=== PATIENT | male | born 1990 | race African-American/Black ===

== ENCOUNTER 2016-12-26 22:58 | Emergency (ER) | payer MEDICAID, MEDICARE ==
[~2016-12-26] VITALS: Ht 170.2 cm; Wt 71.0 kg
[~2016-12-26 22:58] MED LIST: ALBUTEROL
[2016-12-26] MEDS ORDERED: IPRATROPIUM/ALBUTEROL 0.5-3(2.5)MG/3ML NEB HHN ONE (23:45)
[2016-12-26] MEDS ORDERED: PREDNISONE 20MG TABLET PO ONE (23:45)
[2016-12-26] MEDS ORDERED: KETOROLAC 30MG/ML VIAL IV ONE (23:45)
[2016-12-27] MEDS ORDERED: TETANUS, DIPHTHERIA, PERTUSSIS VAC/PF 0.5ML (>7YR OLD) IM ONE (00:30)
[2016-12-27] MEDS ORDERED: LIDOCAINE HCL/EPINEPHRINE 1%-EPI 1:100,000 20 ML VIAL INFIL ONE (00:30)
[2016-12-27 02:15] VITALS: BP 115/66
== END 2016-12-27 02:15 | disposition home or self-care (01) ==
LOC: ER 22:59
DX: S41.012A Laceration without foreign body of left shoulder, initial encounter (principal); S60.221A Contusion of right hand, initial encounter; J45.909 Unspecified asthma, uncomplicated; F17.210 Nicotine dependence, cigarettes, uncomplicated; X99.1XXA Assault by knife, initial encounter; Y92.89 Other specified places as the place of occurrence of the external cause
CPT/HCPCS: 12001; 73030; 73130; 90471; 90715; 94640; 96372; 99284; A4217; J1885; J3490; J7512; X7700; Z7610; J7620

== ENCOUNTER 2017-01-02 15:19 | Emergency (ER) | payer MEDICAID, MEDICARE ==
[~2017-01-02] VITALS: Ht 170.2 cm; Wt 73.0 kg
[2017-01-02 15:55] VITALS: BP 123/72
== END 2017-01-02 15:57 | disposition left against medical advice (07) ==
LOC: ER 15:20
DX: Z53.21 Procedure and treatment not carried out due to patient leaving prior to being seen by health care provider (principal)

== ENCOUNTER 2017-01-03 08:54 | Emergency (ER) | payer MEDICAID ==
[~2017-01-03] VITALS: Ht 170.2 cm; Wt 98.7 kg
[2017-01-03 09:17] VITALS: BP 125/77
== END 2017-01-03 10:57 | disposition home or self-care (01) ==
LOC: ER 09:31
DX: S41.012D Laceration without foreign body of left shoulder, subsequent encounter (principal); J45.909 Unspecified asthma, uncomplicated; X58.XXXD Exposure to other specified factors, subsequent encounter; Y99.9 Unspecified external cause status; Y92.9 Unspecified place or not applicable
CPT/HCPCS: 99281; Z7610

== ENCOUNTER 2021-06-14 07:00 | Emergency (ER) | payer MEDICAID, MEDICARE ==
[~2021-06-14] VITALS: Ht 170.2 cm; Wt 92.7 kg
[2021-06-14] MEDS ORDERED: SODIUM CHLORIDE 0.9% 1,000 ML IV ONE (07:45)
[2021-06-14] MEDS ORDERED: LORAZEPAM 2MG/ML CPJ IV ONE (07:45)
[2021-06-14] MEDS ORDERED: MECLIZINE 25MG TABLET PO ONE (07:45)
[2021-06-14 07:50] LABS: BASOPHILS % 0.6 % (0.0-2.0); EOSINOPHILS % 2.5 % (0.0-5.0); HEMATOCRIT. 44.2 % (42.0-52.0); LYMPHOCYTES % 37.5 % (20.0-50.0); MEAN CORPUSCULAR HEMOGLOBIN 26.8 pg (28.0-32.0); MEAN CORPUSCULAR VOLUME 79.3 fL (80.0-94.0); MEAN PLATELET VOLUME 8.4 fl (7.4-10.4); MONOCYTES % 7.4 % (2.0-8.0); PLATELET 256 x1000/uL (130-400); RED BLOOD CELL COUNT 5.58 mill/uL (4.7-6.1); RED CELL DISTRIBUTION WIDTH 13.7 % (11.6-14.6)
[2021-06-14 07:57] LABS: CHLORIDE 109 mEq/L (98-107)
[2021-06-14 08:02] LABS: ETHANOL BLOOD < 10 mg/dL
[2021-06-14] MEDS ORDERED: ONDA4TAB5 MT (10:43)
[2021-06-14] MEDS ORDERED: MECL-159 MT (10:43)
[2021-06-14 11:07] VITALS: BP 115/69
== END 2021-06-14 11:27 | disposition home or self-care (01) ==
LOC: ER 07:00
DX: R42 Dizziness and giddiness (principal); J45.909 Unspecified asthma, uncomplicated
CPT/HCPCS: 36415; 70450; 80053; 80320; 82962; 83880; 84484; 85025; 93005; 96361; 96374; 99285; J2060; J7030; J8597; Z7610; G0480